=== PATIENT | male | born 2000 | race Caucasian/White ===

== ENCOUNTER 2021-05-18 21:05 | Emergency (ER) | payer BC ==
[~2021-05-18] VITALS: Ht 177.8 cm; Wt 84.4 kg
[2021-05-18 21:25] VITALS: BP 152/89
[2021-05-18 21:55] LABS: BASOPHIL # 0.1 10^3/uL (0.0-0.1); EOSINOPHIL # 0.1 10^3/uL (0.0-0.2); EOSINOPHIL % 1.1 % (0.0-5.0); LYMPHOCYTES % 39.7 % (24.0-44.0); MEAN CORP HGB 30.3 pg (26-34); MONOCYTES # 0.7 10^3/uL (0.0-0.4); MONOCYTES % 8.9 % (5.0-12.0); NEUTROPHIL # 3.6 10^3/uL (1.8-8.0); NEUTROPHILS % 49.3 % (41.0-85.0); PLATELET COUNT 283 10^3/uL (150-400); RED CELL DISTRIBUTION WIDTH 12.4 % (11.5-14.5)
[2021-05-18 21:56] LABS: CARBON DIOXIDE 26.5 mmol/L (20.0-32)
--- NOTE | 2021-05-18 22:21 | ER.PDOC ---
General Chief Complaint: GI Bleed/Rectal Pain Stated Complaint: GI BLEED Time seen by MD: 21:25 Source: patient Exam Limitations: no limitations History of Present Illness Initial Comments Patient is a 20-year-old man who presents the emergency department with chief complaint of rectal bleeding that occurred tonight just prior to arrival.Patient states he is down here working and is staying with the family but he is embarrassed to have bowel movements at the house so he has been holding his stool and going at the convenience store.Patient states he has been having normal stool prior to today however this evening passed a stool with blood in the toilet and was concerned.Patient denies any nausea, vomiting, diarrhea. Patient states he has not had a previous bloody stool. Patient denies any blood in his urine or bleeding gums.Patient states that both of his parents have colonoscopies on a routine basis but have not had a history of colon cancer.Patient denies being on any blood thinners or easy bruising.Patient states he has had some mild lower abdominal cramping which is been intermittent since he has been holding his stool.He denies any dysuria, frequency, urgency, hematuria, Fever. Timing/Duration: 1 hour Severity/Quality: mild, cramping Location of pain: Suprapubic Associated Symptoms: tarry stools (None), contispation/hard stools, bleeding w/o stool, blood mixed w/stool (None), blood streaks on stool (None), bloody diarrhea (None), diarrhea (None) Prior symptoms/Treatment: Similar symptoms previous (None) Past Medical History Medical History: other Surgical History: no surgical history Family History Significant Family History: no pertinent family hx Social History Smoking: non-smoker Alcohol Use: occassionally Drug Use: none Constitutional: denies fever Cardiovascular: denies lightheadedness, denies syncope ABD/GI (ROS): abdominal pain; denies blood streaked bowels; constipated; denies diarrhea, denies nausea; rectal bleeding; denies vomiting Genitourinary: denies hematuria Musculoskeletal: denies back pain Skin: denies change in color Psychiatric/Neurological: denies anxiety Hematologic/Lymphatic: denies easy bleeding, denies easy bruising All Other Systems: Reviewed and Negative Physical Exam General Appearance: No Apparent Distress, WD/WN EENT: eyes nml inspection, nml ENT inspection, pharynx nml Neck: nml inspection, non-tender Respiratory: chest non-tender, lungs clear, normal breath sounds, no respiratory distress, no accessory muscle use Cardiovascular: Normal Peripheral Pulses, Regular Rate, Rhythm, No Edema, No Gallop, No JVD, No Murmur Gastrointestinal: Normal Bowel Sounds, No Organomegaly, No Pulsatile Mass, Non Tender, Soft Rectal: Hemorrhoids Back: Normal Inspection, No CVA Tenderness, No Vertebral Tenderness Extremities: Normal Range of Motion, Non-Tender, Normal Inspection, No Pedal Edema, No Calf Tenderness, Normal Capillary Refill 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21 10^6/uL (4.50-5.90) Hemoglobin 15.8 g/dL (13.2-15.6) H Hematocrit 45.6 % (37.0-53.0) Mean Corpuscular Volume 87.5 fL (78-100) Mean Corpuscular Hemoglobin 30.3 pg (26-34) Mean Corpuscular Hemoglobin Concent 34.6 g/dL (33-36.5) Red Cell Distribution Width 12.4 % (11.5-14.5) Platelet Count 283 10^3/uL (150-400) Mean Platelet Volume 11.2 fL (7.8-11.0) H Neutrophils (%) (Auto) 49.3 % (41.0-85.0) Lymphocytes (%) (Auto) 39.7 % (24.0-44.0) Monocytes (%) (Auto) 8.9 % (5.0-12.0) Neutrophils # (Auto) 3.6 10^3/uL (1.8-8.0) Lymphocytes # (Auto) 2.90 10^3/uL1 (1.2-5.2) Monocytes # (Auto) 0.7 10^3/uL (0.0-0.4) H Absolute Immature Granulocyte (auto 0.02 10^3 u/L (0-2) Absolute Eosinophils (auto) 0.1 10^3/uL (0.0-0.2) Immature Granulocytes % 0.30 % (0.00-0.50) Eosinophils % 1.1 % (0.0-5.0) Basophils % 1.0 % (0.0-0.2) H Basophils # 0.1 10^3/uL (0.0-0.1) Sodium Level 143 mmol/L (132-145) Potassium Level 3.5 mmol/L (3.6-5.2) L Chloride Level 104.0 mmol/L (96-109) Carbon Dioxide Level 26.5 mmol/L (20.0-32) Anion Gap 16.0 Blood Urea Nitrogen 9 mg/dL (7-18) Creatinine 1.02 mg/dL (0.59-1.40) Estimated GFR () 113.8 (>/=60) Est GFR (CKD-EPI)(Non-Afr Singaporean) 94.1 (>/=60) BUN/Creatinine Ratio 8.0 Glucose Level 109 mg/dL (70-110) Calcium Level 9.0 mg/dL (8.4-10.5) Total Bilirubin 0.6 mg/dL (0.2-1.0) Aspartate Amino Transferase (AST) 32 U/L (0-35) Alanine Aminotransferase (ALT) 35 U/L (12-78) Alkaline Phosphatase 99 U/L (50-136) Total Protein 7.9 g/dL (6.4-8.2) Albumin 4.5 g/dL (3.4-5.0) Globulin 3.4 Albumin/Globulin Ratio 1.323 Progress Progress Patient had normal CBC and CMP. Patient has hemorrhoids on exam which are likely the source of his bleeding.I recommended to the patient that he not hold his stool but have bowel movements on a regular basis. Patient does not appear to have upper GI bleed, diverticulitis, bleeding diathesis, leukemia, thrombocytopenia, foreign body the rectum, laceration, or other serious etiology of symptoms. Patient will be discharged home. ER DEPART Departure Time of Disposition: 22:20 Disposition: HOME / SELF CARE / HOMELESS Impression: Primary Impression: External hemorrhoids without complication Condition: Improved Referrals: PCP,UNKNOWN (PCP) PRIMARY CARE PROVIDER Additional Instructions: Thank you for your visit today and trusting us with your health care needs. Return immediately if severe abdominal pain, bloody diarrhea, vomiting, fever. Drink lots of fluids. High-fiber diet. Have bowel movements as needed and do not hold your stool. Anusol as prescribed. Follow-up with primary care zamzam fonseca in 1 week Duration or Time Spent with Pa: 30 min Return to Work/School Can a patient return to work?: Yes ИРИНА ANN MD May 18, 2021 22:21
[2021-05-18 22:37] VITALS: BP 136/69
== END 2021-05-18 22:43 | disposition home or self-care (01) ==
LOC: ER 21:05
DX: K64.4 Residual hemorrhoidal skin tags (principal)
CPT/HCPCS: 36415; 80053; 85025; 99283